=== PATIENT | female | born 1975 | race Caucasian/White ===

== ENCOUNTER 2016-09-25 08:52 | Emergency (ER) | payer BC ==
[2016-09-25 09:07] VITALS: BP 131/75; PULSE 82; RESP 16; TEMP 97.7; O2SAT 99
--- NOTE | 2016-09-25 09:07 | CPEKG ---
Heart Rate: 73 RR Interval: 822 P-R Interval: 160 QRSD Interval: 84 QT Interval: 396 QTC Interval: 437 P Bethel: 63 QRS Bethel: 80 T Wave Bethel: 21 EKG Severity - NORMAL ECG - EKG Impression: SINUS RHYTHM Electronically Signed By: Kye Farmer 25-Sep-2016 09:20:52
--- NOTE | 2016-09-25 09:16 | EDPHY ---
H & P Stated Complaint: pain in chest and joints, worse after starting period yesterday Time Seen by Provider: 09/25/16 09:01 HPI/ROS: CHIEF COMPLAINT: Chest pain HISTORY OF PRESENT ILLNESS: The patient is a 40-year-old healthy female who comes to the emergency department complaining of chest pain. She states that he 2 weeks ago she was diagnosed with a sinusitis and ear infection. She was started on a 10 day course of antibiotics. Her symptoms improved but over the last 2 days she has had "tendon aches" in her joints and muscles. This morning she developed some sternal pain particularly in the left border of her sternum. The pain is reproducible with palpation or twisting movement. She denies shortness of breath or pain with deep inspiration. She denies back pain. No nausea vomiting or diaphoresis. No radiation of the pain. No lightheadedness or dizziness. She is tall but does not have any history of Marfan's or lax joints. REVIEW OF SYSTEMS: Constitutional: denies: chills, fever, recent illness, recent injury EENTM: denies: blurred vision, double vision, nose congestion Respiratory: denies: cough, shortness of breath Cardiac: See HPI Gastrointestinal/Abdominal: denies: abdominal pain, diarrhea, nausea, vomiting, blood streaked stools Genitourinary: denies: dysuria, frequency, hematuria, pain Musculoskeletal: See HPI Skin: denies: lesions, rash, jaundice, bruising Neurological: denies: headache, numbness, paresthesia, tingling, dizziness, weakness Hematologic/Lymphatic: denies: blood clots, easy bleeding, easy bruising Immunologic/allergic: denies: HIV/AIDS, transplant EXAM: GENERAL: Well-appearing, well-nourished and in no acute distress. HEAD: Atraumatic, normocephalic. EYES: Pupils equal round and reactive to light, extraocular movements intact, sclera anicteric, conjunctiva are normal. ENT: TMs normal, nares patent, oropharynx clear without exudates. Moist mucous membranes. NECK: Normal range of motion, supple without lymphadenopathy or JVD. LUNGS: Breath sounds clear to auscultation bilaterally and equal. No wheezes rales or rhonchi. HEART: Chest wall pain reproducible with palpation or movement. Regular rate and rhythm without murmurs, rubs or gallops. ABDOMEN: Soft, nontender, normoactive bowel sounds. No guarding, no rebound. No masses appreciated. BACK: No CVA tenderness, no spinal tenderness, step-offs or deformities EXTREMITIES: Normal range of motion, no pitting or edema. No clubbing or cyanosis. NEUROLOGICAL: Cranial nerves II through XII grossly intact. Normal speech, normal gait. 5/5 strength, normal movement in all extremities, normal sensation PSYCH: Normal mood, normal affect. SKIN: Warm, dry, normal turgor, no visible rashes or lesions. Source: Patient Exam Limitations: No limitations - Personal History LMP (Females 10-55): Now - Medical/Surgical History Hx Asthma: No Hx Chronic Respiratory Disease: No Hx Diabetes: No Hx Cardiac Disease: No Hx Renal Disease: No Hx Cirrhosis: No Hx Alcoholism: No Hx HIV/AIDS: No Hx Splenectomy or Spleen Trauma: No Other PMH: hashimotos, PCOS - Family History Significant Family History: No pertinent family hx - Social History Smoking Status: Never smoked Alcohol Use: Sober Drug Use: None Constitutional: Initial Vital Signs Temperature (C) 36.5 C 09/25/16 09:03 Heart Rate 82 09/25/16 09:03 Respiratory Rate 16 09/25/16 09:03 Blood Pressure 131/75 H 09/25/16 09:03 O2 Sat (%) 99 09/25/16 09:03 O2 Delivery Mode Room Air Allergies/Adverse Reactions: Penicillins Allergy (Unknown, Verified 09/25/16 09:03) Home Medications: Medication Instructions Recorded Levothyroxine [Synthroid 25 mcg 50 06/30/12 (RX)] Medical Decision Making - Diagnostics EKG Interpretation: An EKG obtained and was read and documented in trace view. Please see trace view for full reading and report. Sinus rhythm, no acute ischemic changes or signs of right heart strain ED Course/Re-evaluation: The patient's symptoms are consistent with costochondritis. No evidence of pericarditis or pleurisy. Her EKG is reassuring. We discussed options and I offered blood work and imaging. She does not feel that this is necessary and I agree that the risk of significant cardiac or pulmonary disease in this young healthy female with a normal EKG is very low. She has equal pulses in both arms and normal blood pressure. I recommended anti-inflammatories and re- evaluation in 24 hours. She understands and agrees with this plan. Differential Diagnosis: Partial list of the Differential diagnosis considered include but were not limited to; costochondritis, pericarditis, pleurisy, acute coronary disease, dissection and although unlikely based on the history and physical exam, I also considered PE, pneumonia. I discussed these differential diagnoses and the plan with the patient as well as the usual and expected course. The patient understands that the diagnosis is provisional and that in medicine we are not always correct and that further workup is often warranted. Usual and customary warnings were given. All of the patient's questions were answered. The patient was instructed to return to the emergency department should the symptoms at all worsen or return, otherwise to followup with the physician as we discussed. Departure - Departure Disposition: Home, Routine, Self-Care Clinical Impression: Costochondritis Condition: Fair Instructions: Costochondritis (ED) Referrals: Julisa Fernandez MD [Primary Care Provider] - As per Instructions
== END 2016-09-25 09:23 | disposition home or self-care (01) ==
LOC: CED 08:52
DX: M94.0 Chondrocostal junction syndrome [Tietze] (principal)